=== PATIENT | male | born 1975 | race Caucasian/White ===

== ENCOUNTER 2020-06-08 12:16 | Emergency (ER) | payer SELFPAY ==
--- NOTE | 2020-06-08 12:28 | ER Document Report ---
ED Medical Screen (RME) - General Chief Complaint: Abdominal Pain Stated Complaint: ABDOMINAL PAIN Time Seen by Provider: 06/08/20 12:20 Mode of Arrival: Ambulatory Information source: Patient Notes: 45-year-old male presented to ED for complaint of nausea and vomiting and abdominal pain off and on for several months. He states he has not been to a doctor in several years and that was an ER visit he does not have a primary care doctor. He thinks he has an ulcer. He states last night about 2:00 he woke up in excruciating pain with nausea and vomiting that was much worse. Patient is very tender to the upper center of his abdomen at this time bowel sounds are active. He states he smokes 1/2 pack a day, he states he has not had any alcohol in about 8 months he is a recovering alcoholic, he states he has an occasional marijuana no other illicit drugs. He states the last time he went to the ER which was a couple years ago they thought he had an ulcer but they ran all kind of testing could not find an ulcer. Physical Exam - Vital signs Vitals: Temp Pulse Resp BP Pulse Ox 98.1 F 70 18 107/74 100 06/08/20 12:24 06/08/20 12:24 06/08/20 12:24 06/08/20 12:24 06/08/20 12:24 Course - Vital Signs Vital signs: Temp Pulse Resp BP Pulse Ox 98.1 F 70 18 107/74 100 06/08/20 12:24 06/08/20 12:24 06/08/20 12:24 06/08/20 12:24 06/08/20 12:24
[2020-06-08] MEDS ORDERED: NORMAL SALINE 1000 ML 1,000 ML IV ONE (12:44)
[2020-06-08] MEDS ORDERED: MORPHINE SULFATE 10 MG/ML INJ IV ONE (12:44)
[2020-06-08] MEDS ORDERED: ONDANSETRON HCL INJ/PF 4 MG/2 ML SDV IV ONE ×2 (12:44→14:06)
[2020-06-08 12:58] LABS: ABSOLUTE LYMPHOCYTES (AUTO) 1.2 10^3/uL (0.5-4.7); ABSOLUTE MONOCYTES (AUTO) 0.2 10^3/uL (0.1-1.4); ABSOLUTE NEUT (AUTO) 7.2 10^3/uL (1.7-8.2); BASOPHILS % (AUTO) 0.4 % (0-2); HEMATOCRIT 42.8 % (37.9-51.0); HEMOGLOBIN 15.4 g/dL (13.5-17.0); LYMPHOCYTES % (AUTO) 14.2 % (13-45); MEAN CORPUSCULAR HGB CONC 35.9 g/dL (32.0-36.0); MEAN CORPUSCULAR VOLUME 92 fl (80-97); MONOCYTES % (AUTO) 2.7 % (3-13); PLATELET COUNT 336 10^3/uL (150-450); RED BLOOD COUNT 4.66 10^6/uL (4.35-5.55); RED CELL DISTRIBUTION WIDTH 14.5 % (11.5-14.0); SEGMENTED NEUTROPHILS % (AUTO) 82.7 % (42-78); TOTAL CELLS COUNTED % (AUTO) 100 %; WHITE BLOOD COUNT 8.7 10^3/uL (4.0-10.5)
[2020-06-08 13:03] LABS: APPEARANCE,URINE CLEAR; BILIRUBIN,URINE NEGATIVE (NEGATIVE); COLOR,URINE YELLOW; GLUCOSE, URINE NEGATIVE (NEGATIVE); KETONES,URINE 20 mg/dL (NEGATIVE); LEUKOCYTE ESTERASE,URINE NEGATIVE (NEGATIVE); NITRITE,URINE NEGATIVE (NEGATIVE); PROTEIN,URINE 100 mg/dL (NEGATIVE); URINE SPECIFIC GRAVITY 1.028
--- NOTE | 2020-06-08 13:13 | ER Document Report ---
ED GI/ - General Chief Complaint: Abdominal Pain Stated Complaint: ABDOMINAL PAIN Time Seen by Provider: 06/08/20 12:20 Mode of Arrival: Ambulatory Notes: CHIEF COMPLAINT: Abdominal pain and vomiting HPI: 45-year-old male presenting for epigastric abdominal pain intermittent over the last 3 to 6 months but onset of multiple episodes of vomiting today. States pain is worse today. Is concerned he might have an ulcer. States that he had been worked up for something similar 2 years ago and they never found a def initive cause but he never followed up and never went to gastroenterology. Has never had endoscopy. Denies lower abdominal pain. Denies vomiting blood. States he has not had any alcohol in the last 8 months. ROS: See HPI - all other systems were reviewed and are otherwise negative Constitutional: no fever Eyes: no drainage, no blurred vision ENT: no runny nose, no sore throat Cardiovascular: no chest pain Resp: no SOB, no cough GI: + vomiting, no diarrhea, + abdominal pain : no dysuria Integumentary: no rash Allergy: no hives Musculoskeletal: no extremity pain or swelling Neurological: no numbness/tingling, no weakness MEDICATIONS: I agree with the patient medications as charted by the RN. ALLERGIES: I agree with the allergies as charted by the RN. PAST MEDICAL HISTORY/PAST SURGICAL HISTORY: Reviewed and agree as charted by RN. SOCIAL HISTORY: Reviewed and agree as charted by RN. FAMILY HISTORY: No significant familial comorbid conditions directly related to patient complaint EXAM: Reviewed vital signs as charted by RN. CONSTITUTIONAL: Alert and oriented and responds appropriately to questions. Well-appearing; well-nourished HEAD: Normocephalic; atraumatic EYES: PERRL; Conjunctivae clear, sclerae non-icteric ENT: normal nose; no rhinorrhea; moist mucous membranes; pharynx without lesions noted, no uvula edema or deviation, no tonsillar hypertrophy, phonation normal NECK: Supple without meningismus; non-tender; no cervical lymphadenopathy, no masses CARD: RRR; no murmurs, no clicks, no rubs, no gallops; symmetric distal pulses RESP: Normal chest excursion without splinting or tachypnea; breath sounds clear and equal bilaterally; no wheezes, no rhonchi, no rales, pulse oximetry 97% on room air not hypoxic ABD/GI: Normal bowel sounds; non-distended; soft, mild epigastric tenderness on palpation, no right upper quadrant tenderness on palpation, no rebound, no guarding; no palpable organomegaly or masses. BACK: The back appears normal and is non-tender to palpation, there is no CVA tenderness EXT: Normal ROM in all joints; non-tender to palpation; no cyanosis, no effusions, no edema SKIN: Normal color for age and race; warm; dry; good turgor; no acute lesions noted NEURO: Moves all extremities equally; Motor and sensory function intact PSYCH: The patient's mood and manner are appropriate. Grooming and personal hygiene are appropriate. MDM: 45-year-old male presenting with epigastric pain with vomiting. Intermittent epigastric pain issues from up to half a year. Slightly worse today with multiple episodes of vomiting. No fever. He is not concerned about Covid. Initial screening labs placed by triage process. Will add right upper quadrant ultrasound to evaluate for cholelithiasis although I feel if this is negative and his labs are nonactionable he likely has gastric ulcer or gastritis and will place on medication and refer to GI. Have low suspicion for ACS. - Related Data Allergies/Adverse Reactions: No Known Allergies Allergy (Unverified 06/08/20 12:45) Past Medical History - General Information source: Patient - Social History Smoking Status: Current Every Day Smoker Family History: Reviewed & Not Pertinent Physical Exam - Vital signs Vitals: Temp Pulse Resp BP Pulse Ox 98.1 F 70 18 107/74 100 06/08/20 12:24 06/08/20 12:24 06/08/20 12:24 06/08/20 12:24 06/08/20 12:24 Course - Re-evaluation Re-evalutation: 06/08/20 14:26 Ultrasound of laboratory not show acute emergent abnormalities this may be a gastric ulcer or gastritis. Place patient on a short course of pain medication nausea medication Protonix refer to GI - Vital Signs Vital signs: Temp Pulse Resp BP Pulse Ox 98.1 F 70 18 107/74 100 06/08/20 12:24 06/08/20 12:24 06/08/20 12:24 06/08/20 12:24 06/08/20 12:24 - Laboratory Result Diagrams: 06/08/20 12:37 06/08/20 12:37 Laboratory results interpreted by me: 06/08/20 06/08/20 06/08/20 12:37 12:37 12:37 RDW 14.5 H Loving % (Auto) 2.7 L Seg Neutrophils % 82.7 H Alkaline Phosphatase 128 H Urine Protein 100 H Urine Ketones 20 H Urine Urobilinogen 2.0 H Discharge - Discharge Clinical Impression: Abdominal pain, acute, epigastric Vomiting Qualifiers: Vomiting type: unspecified Vomiting Intractability: non-intractable Nausea presence: with nausea Qualified Code(s): R11.2 - Nausea with vomiting, unspecified Condition: Stable Disposition: HOME, SELF-CARE Additional Instructions: Medications as prescribed no driving if taking narcotics for pain. Follow-up closely with gastroenterology for further evaluation and treatment call for appointment. Your lab work and ultrasound today did not show acute emergent abnormalities. Make sure you avoid spicy or greasy foods. Prescriptions: Hydrocodone/Acetaminophen [[place] 5-325 mg Tablet] 1 tab PO Q4 PRN #10 tablet PRN Reason: Pantoprazole Sodium [Protonix [address] Tablet] 20 mg PO DAILY #30 tablet. Ondansetron [Zofran Odt 4 mg Tablet] 1 - 2 tab PO Q4H PRN #15 tab.rapdis PRN Reason: For Nausea/Vomiting Referrals: ELVIRA MCKENZIE MD [ACTIVE STAFF] - Follow up as needed
[2020-06-08 13:14] LABS: ALBUMIN 4.6 g/dL (3.5-5.0); ALKALINE PHOSPHATASE 128 U/L (38-126); ANION GAP 8 (5-19); ASPARTATE AMINO TRANSFERASE 20 U/L (17-59); BILIRUBIN,DIRECT 0.1 mg/dL (0.0-0.4); BILIRUBIN,TOTAL 0.6 mg/dL (0.2-1.3); BLOOD UREA NITROGEN 15 mg/dL (7-20); CALCIUM 10.1 mg/dL (8.4-10.2); CARBON DIOXIDE 28 mmol/L (22-30); CHLORIDE 102 mmol/L (98-107); GLUCOSE 101 mg/dL (75-110); POTASSIUM 4.8 mmol/L (3.6-5.0); TOTAL PROTEIN 7.3 g/dL (6.3-8.2)
[2020-06-08 13:18] LABS: URINE AMPHETAMINES SCREEN NEGATIVE; URINE BARBITURATES SCREEN NEGATIVE; URINE BENZODIAZEPINES SCREEN NEGATIVE; URINE COCAINE SCREEN NEGATIVE; URINE METHADONE SCREEN NEGATIVE; URINE PHENCYCLIDINE SCREEN NEGATIVE
[2020-06-08 13:19] LABS: URINE MARIJUANA (THC) SCREEN UNCONFIRMED POSITIVE
--- NOTE | 2020-06-08 13:46 | RADIOLOGY REPORT (SQ) ---
EXAM DESCRIPTION: U/S ABDOMEN LIMITED W/O DOP IMAGES COMPLETED DATE/TIME: 06/08/2020 1:28 pm REASON FOR STUDY: epigastric pain vomiting COMPARISON: None. TECHNIQUE: Dynamic and static grayscale images acquired of the abdomen and recorded on PACS. Additio tory selected color Doppler and spectral images recorded. LIMITATIONS: None. FINDINGS: PANCREAS: No masses. Visualized pancreatic duct normal caliber. LIVER: No masses. Echotexture normal. LIVER VASCULATURE: Normal directional flow of the main portal vein and hepatic veins. GALLBLADDER: No stones. Normal wall thickness. No pericholecystic fluid. ULTRASOUND-DETECTED CONCEPCION'S SIGN: Negative. INTRAHEPATIC DUCTS AND COMMON DUCT: CBD and intrahepatic ducts normal caliber. No filling defects. AORTA: No aneurysm. RIGHT KIDNEY: Normal size, 10 cm. Normal echogenicity. No solid or suspicious masses. No hydronephro sis. No calcifications. PERITONEAL AND RIGHT PLEURAL SPACE: No ascites or effusions. OTHER: No other significant findings. IMPRESSION: NORMAL RIGHT UPPER QUADRANT ULTRASOUND. TECHNICAL DOCUMENTATION: JOB ID: [id number] 2010 [employer]- All Rights Reserved Reading location - IP/workstation name: [email or web address]
[2020-06-08 14:33] VITALS: BP 142/89
== END 2020-06-08 14:36 | disposition home or self-care (01) ==
LOC: ER 12:16
DX: R10.13 Epigastric pain (principal); R11.2 Nausea with vomiting, unspecified; F17.200 Nicotine dependence, unspecified, uncomplicated
CPT/HCPCS: 99285; 96361; 96374; 96375; 36415; 87086; 83690; 85025; 80053; 81001; 80307; 76705; J2270; J2405; J7030